=== PATIENT | male | born 1940 | race Caucasian/White ===

== ENCOUNTER 2024-01-10 11:05 | Inpatient (IN) ==
--- NOTE | 2024-01-10 11:46 | Emergency Department Note ---
Impression & Plan Chest pain, Dementia ED Provider Note NAME: YOSI SCALES AGE: 83 SEX: Male INFORMANT: Patient and EMS ED PROVIDER(S): Yosi Vázquez MD CHIEF COMPLAINT: Chest pain PLAN: Disposition: Admitted Outpatient prescription management: none Referral: None MEDICAL DECISION MAKING: Patient presented due to chest pain. Workup was initiated. Twelve-lead ECG reveals atrial fibrillation with PVCs and no acute ischemia. Chest x-ray and blood work ordered. Patient had unremarkable CBC and chemistry panel. He did have mild elevation of cardiac troponin. Chest x-ray was negative. Patient was reassessed and was not having any chest pain. Further management hospital will be necessary. Consultation was made with the [facility] service. Patient was evaluated in the ER admitted for further management. I did attempt to interrogate the patient's pacemaker however it is not compatible with [employer] device and there is no record of the type of device and his personal care information. Care/management discussed with: process excellence manager Level of care consideration(s): After review of the information above and other included data, I feel the patient requires escalation of care to admission Triage Nursing notes: reviewed and agree them. Vital Signs: reviewed and remarkable for no significant abnormalities Additional History obtained from: none Chronic Medical/Social Conditions affecting care: Dementia, A-fib Prior/ Outside/ External records reviewed: [facility] records provided for this visit reviewed. Patient is anticoagulated on apixaban. Differential Diagnosis: Cardiac ischemia, aortic dissection, pulmonary embolism, pneumothorax, pneumonia, pericarditis, myocarditis, esophageal rupture, GERD, cholecystitis, pancreatitis, musculoskeletal, as well as other pathologies. Diagnostics, independently interpreted by me: ECG: Twelve-lead ECG reveals atrial fibrillation with PVCs and left axis deviation at 99 bpm. Nonspecific intraventricular conduction block present. Nonspecific ST. Cardiac Monitoring: Cardiac monitoring ordered by me: The patient was placed on continuous cardiac monitoring and observed. It revealed A-fib with PVCs at 90 bpm Medical decision rules: none Imaging studies: Chest x-ray. Findings: A chest x-ray was performed and revealed no pneumothorax, effusion, infiltrate, pulmonary edema, free air under the diaphragm, or wide mediastinum. Impression: No acute disease. HPI: 83 year old Male arrives for evaluation of chest pain. Patient currently resides at [facility]. Has a history of dementia reportedly. Currently patient does not have any pain. EMS noted the pain started this morning sometime. Patient states that pain has been on and off for the last week or 2. He does note that there was some pain in his back this morning as well. EMS did note that his O2 saturations were in the low 90s. He was placed on supplemental oxygen. Upon arrival to the ER the patient is saturating well on room air. He denies any shortness of breath. Patient is anticoagulated. He does note some swelling in the legs. Denies any nausea, vomiting, fevers, chills, or abdominal pain. History is limited secondary to patient's dementia. PAST MEDICAL HISTORY: See Below, A-fib PAST SURGICAL HISTORY: See Below, pacemaker SOCIAL HISTORY: See Below, retired HOME MEDICATIONS: See Below ALLERGIES: See Below VITALS: See Below PHYSICAL EXAMINATION: GENERAL: Awake, alert, [id number], in no distress HENT: Normocephalic, atraumatic. Oropharynx unremarkable. EYES: Normal conjunctiva. Sclera non-icteric. NECK: Inspection normal. Non-tender. Supple. No nuchal rigidity. FROM. No masses. RESPIRATORY: Clear to auscultation. No wheezes. No rales. Normal respiratory effort. CARDIAC: Normal rate. Normal rhythm. No murmurs. No rubs. Extremities warm and well perfused. Pulses equal. No JVD. GI: Soft, non-distended. No tenderness to palpation. No rebound or guarding. No masses. RECTAL: Deferred. MUSCULOSKELETAL: Atraumatic. Chest examination reveals pacemaker in the left upper chest. The back is symmetrical on inspection without obvious abnormality. There is no CVA tenderness to palpation. No joint edema. LOWER EXTREMITIES: Calves are equal size bilaterally and non-tender. 1-2+ edema. No discoloration. NEURO: Normal sensorium. No sensory or motor deficits noted. SKIN: No rash or jaundice noted. PROCEDURES: none CRITICAL CARE: none OBSERVATION NOTE: none Past Med/Surg History Problem List (Updated 01/10/24 @ 14:06 by Chuck Saravia MD) Chronic a-fib Cardiac pacemaker in situ Hypertension History of CHF (congestive heart failure) Dementia (Acute) Chest pain (Acute) Social History Smoking Status: Unknown if ever smoked Feels Safe at Home: Yes Allergies Allergies Allergy/AdvReac Type Severity Reaction Status Date / Time No Known Allergies Allergy Unverified 01/10/24 13:14 Home Meds Home Medications Medication Instructions Recorded Confirmed apixaban 5 mg tablet 5 mg PO BID 01/10/24 01/10/24 atorvastatin 20 mg tablet 20 mg PO HS 01/10/24 01/10/24 carvedilol 3.125 mg tablet 3.125 mg PO BID 01/10/24 01/10/24 docusate sodium 100 mg capsule 100 mg PO BID 01/10/24 01/10/24 empagliflozin 10 mg tablet 10 mg PO QAM 01/10/24 01/10/24 (Jardiance) furosemide 20 mg tablet 20 mg PO BID 01/10/24 01/10/24 hydroxyzine HCl 10 mg tablet 10 mg PO BID PRN anxiety/aggitation 01/10/24 01/10/24 hydroxyzine HCl 10 mg tablet 10 mg PO HS 01/10/24 01/10/24 sennosides 8.6 mg tablet (senna) 8.6 mg PO UD 01/10/24 01/10/24 sertraline 25 mg tablet 25 mg PO DAILY 01/10/24 01/10/24 tamsulosin 0.4 mg capsule 0.4 mg PO QPM 01/10/24 01/10/24 Results & Data (ED) Vital Signs Vital Signs - 24 hr 01/10/24 10:50 01/10/24 10:50 01/10/24 10:50 Temperature 36.7 C Temperature Source Oral Pulse Rate 93 H Pulse Rate from SpO2 Sensor Pulse Rhythm Regular Pulse Strength Normal Respiratory Rate 20 Respiratory Effort / Characteristics Non-Labored Spontaneous Non-Labored Spontaneous Respiratory Depth Normal Normal Respiratory Pattern Regular Blood Pressure 116/75 Blood Pressure Mean 88 Blood Pressure Position Sitting Pulse Oximetry 93 90 Oxygen Delivery Method Room Air Room Air Oxygen Flow Rate Sepsis Recent Fever Within 48 Hours No Sepsis New/Unexplained Change in Mental Status No Sepsis Action Taken by Nursing No Action Required 01/10/24 11:21 01/10/24 11:51 01/10/24 11:57 Temperature Temperature Source Pulse Rate 96 H 85 101 H Pulse Rate from SpO2 Sensor 91 H 99 H Pulse Rhythm Pulse Strength Respiratory Rate 18 22 Respiratory Effort / Characteristics Respiratory Depth Respiratory Pattern Blood Pressure Blood Pressure Mean Blood Pressure Position Pulse Oximetry 94 93 Oxygen Delivery Method Oxygen Flow Rate Sepsis Recent Fever Within 48 Hours Sepsis New/Unexplained Change in Mental Status Sepsis Action Taken by Nursing 01/10/24 12:01 01/10/24 12:01 01/10/24 12:03 Temperature Temperature Source Pulse Rate 94 H 85 Pulse Rate from SpO2 Sensor 93 H 85 Pulse Rhythm Pulse Strength Respiratory Rate 14 Respiratory Effort / Characteristics Respiratory Depth Respiratory Pattern Blood Pressure 116/77 Blood Pressure Mean 82 Blood Pressure Position Pulse Oximetry 98 Oxygen Delivery Method Nasal Cannula Oxygen Flow Rate 1 Sepsis Recent Fever Within 48 Hours Sepsis New/Unexplained Change in Mental Status Sepsis Action Taken by Nursing 01/10/24 12:09 01/10/24 12:30 01/10/24 12:30 Temperature Temperature Source Pulse Rate 82 84 Pulse Rate from SpO2 Sensor 91 H 84 Pulse Rhythm Pulse Strength Respiratory Rate 14 16 Respiratory Effort / Characteristics Respiratory Depth Respiratory Pattern Blood Pressure 109/77 Blood Pressure Mean 91 Blood Pressure Position Pulse Oximetry 95 94 Oxygen Delivery Method Nasal Cannula Nasal Cannula Oxygen Flow Rate 1 1 Sepsis Recent Fever Within 48 Hours Sepsis New/Unexplained Change in Mental Status Sepsis Action Taken by Nursing Laboratory Data 01/10/24 11:45 01/10/24 12:39 Lab Results 01/10/24 01/10/24 01/10/24 Range/Units 11:45 12:39 12:40 WBC 9.10 (4.8-10.8) K/ul RBC 4.87 (4.70-6.10) M/uL Hgb 14.1 (14.0-18.0) g/dl Hct 45.6 (42.0-52.0) % MCV 93.6 (80.0-100.0) fL MCH 29.0 (25.0-34.0) pg MCHC 30.9 L (32.0-36.0) g/dL RDW Std Deviation 58.0 H (36.4-46.3) fL RDW Coeff of Gt 17.8 H (11.5-14.5) % Plt Count 144 (130-400) K/uL MPV 13.3 H (9.4-12.4) fL Immature Gran % (Auto) 0.3 % Neut % (Auto) 76.9 % Lymph % (Auto) 13.8 % [place] % (Auto) 7.8 % Eos % (Auto) 0.9 % Baso % (Auto) 0.3 % Neut # (Auto) 6.99 H (1.40-6.50) K/uL Lymph # (Auto) 1.26 (1.20-3.40) K/uL [place] # (Auto) 0.71 H (0.11-0.59) K/uL Eos # (Auto) 0.08 (0.00-0.50) K/uL Baso # (Auto) 0.03 (0.00-0.20) K/uL Immature Gran # (Auto) 0.03 (0.01-0.20) K/uL PT Cancelled 15.0 H INR Cancelled 1.4 H Sodium 136 (136-145) mmol/L Potassium TNP 4.7 Chloride 103 (98-107) mmol/L Carbon Dioxide 23 (21-32) mmol/L Anion Gap 10 (3-11) BUN 42 H (6-23) mg/dl Creatinine 1.42 H (0.6-1.4) mg/dl Est Cr Clr Drug Dosing 39.3 ml/min Est GFR ( Amer) 51.8 ml/min Est GFR (Non-Af Amer) 44.7 ml/min BUN/Creatinine Ratio 29.6 H (10-20) Glucose 115 H (70-99(Fasting)) mg/dl Calcium 8.7 (8.6-10.3) mg/dl Magnesium 2.8 H (1.7-2.4) mg/dl Total Bilirubin 1.9 H (0.2-1.0) mg/dl AST TNP 23 ALT 24 (7-52) U/L Alkaline Phosphatase 83 (34-104) U/L Troponin I High Sens 27.8 H (0-20) pg/ml Total Protein 6.6 (6.0-8.3) gm/dl Albumin 3.9 (3.4-5.0) gm/dl Globulin 2.7 (2.5-4.0) gm/dl Albumin/Globulin Ratio 1.4 (0.9-2) TSH 7.876 H (0.300-4.500) uIu/ml Free T4 0.97 (0.61-1.60) ng/dl Imaging Data Radiologist's Impression: Chest X-Ray 01/10/24 11:36 XR chest 1V portable CLINICAL HISTORY: CHEST PAIN TECHNIQUE: Single frontal radiograph of the chest was obtained. Comparison: None available at the time of this dictation. FINDINGS: Pacemaker defibrillator is seen. Cardiomegaly is noted. The aortic arch is calcified. Reticular interstitial opacities are seen. Small right and trace left pleural effusions. IMPRESSION: No acute chest disease. Cardiomegaly is noted. Small bilateral pleural effusions. ACT 112: Negative or not required by law. Electronically signed by: Shay Mccurdy M.D. 01/10/2024 12:14 PM Discharge Plan Visit Data Chief Complaint: Cardiac Assessment ED Provider: Yosi Vázquez Discharge Problem: Chest pain, Dementia Patient Disposition: Admitted As Inpatient Discharge Instructions Interventions: ED Discharge Assessment Last Done: 01/10/24 14:22
--- NOTE | 2024-01-10 12:15 | XRay Report ---
XR chest 1V portable CLINICAL HISTORY: CHEST PAIN TECHNIQUE: Single frontal radiograph of the chest was obtained. Comparison: None available at the time of this dictation. FINDINGS: Pacemaker defibrillator is seen. Cardiomegaly is noted. The aortic arch is calcified. Reticular inter stitial opacities are seen. Small right and trace left pleural effusions. IMPRESSION: No acute chest disease. Cardiomegaly is noted. Small bilateral pleural effusions. ACT 112: Negative or not required by law. Electronically signed by: Shay Mccurdy M.D. 01/10/2024 12:14 PM
[2024-01-10 12:22] LABS: Alanine Aminotransferase 24 U/L (7-52); Albumin Globulin Ratio 1.4 (0.9-2); Albumin Level 3.9 gm/dl (3.4-5.0); Alkaline Phosphatase 83 U/L (34-104); Anion Gap 10 (3-11); BUN Creatinine Ratio 29.6 (10-20); Bilirubin,Total 1.9 mg/dl (0.2-1.0); Blood Urea Nitrogen 42 mg/dl (6-23); Calcium 8.7 mg/dl (8.6-10.3); Carbon Dioxide 23 mmol/L (21-32); Chloride 103 mmol/L (98-107); Creatinine Clr Calc Pharmacy 39.3 ml/min; Est GFR (African American) 51.8 ml/min; Est GFR (Non-African American) 44.7 ml/min; Globulin 2.7 gm/dl (2.5-4.0); Glucose 115 mg/dl (70-99(Fasting)); Magnesium 2.8 mg/dl (1.7-2.4); Sodium 136 mmol/L (136-145); Total Protein 6.6 gm/dl (6.0-8.3)
[2024-01-10 12:23] LABS: Troponin I High Sensitivity 27.8 pg/ml (0-20)
[2024-01-10 12:33] LABS: Thyroid Stimulating Hormone 7.876 uIu/ml (0.300-4.500)
[2024-01-10 12:34] LABS: Basophils # (auto) 0.03 K/uL (0.00-0.20); Basophils % (auto) 0.3 %; Eosinophils # (auto) 0.08 K/uL (0.00-0.50); Eosinophils % (auto) 0.9 %; Hematocrit (blood only) 45.6 % (42.0-52.0); Hemoglobin 14.1 g/dl (14.0-18.0); Immature Granulocytes # (auto) 0.03 K/uL (0.01-0.20); Immature Granulocytes % (auto) 0.3 %; Lymphocytes # (auto) 1.26 K/uL (1.20-3.40); Lymphocytes % (auto) 13.8 %; Mean Corpuscular Hgb Conc 30.9 g/dL (32.0-36.0); Mean Corpuscular Volume 93.6 fL (80.0-100.0); Mean Platelet Volume 13.3 fL (9.4-12.4); Monocytes # (auto) 0.71 K/uL (0.11-0.59); Monocytes % (auto) 7.8 %; Neutrophils # (auto) 6.99 K/uL (1.40-6.50); Neutrophils % (auto) 76.9 %; Platelet Count 144 K/uL (130-400); RDW Coefficient of Variation 17.8 % (11.5-14.5); Red Blood Count 4.87 M/uL (4.70-6.10)
[2024-01-10 13:12] LABS: T4 Free Thyroxine 0.97 ng/dl (0.61-1.60)
[2024-01-10 13:13] LABS: Potassium 4.7 mmol/L (3.5-5.1)
[2024-01-10 13:24] LABS: INR 1.4 (0.9-1.1)
--- NOTE | 2024-01-10 13:47 | History & Physical Report ---
Date of Service January 10, 2024 Assessment & Plan (1) Chest pain: (2) Chronic a-fib: (3) Cardiac pacemaker in situ: (4) History of CHF (congestive heart failure): (5) Dementia: Plan 83 year old male from [facility] with history of dementia, HTN, A fib, CHF, BPH, Urinary incontinence, HLD, depression who was sent to the ED for chest pain. Chest pain- unreliable historian. Trop mildly elevated. EKG with rate controlled A fib, no prior EKGs to compare. Will trend trop, check echo, monitor in tele, interrogate pacemaker. Given unreliable history and inability to interrogate pacemaker, will consult cardio. Chronic A fib- Rate controlled on coreg, anticoagulated on eliquis History of CHF- does not look overtly volume overloaded. CXR noted. Saturating well in room air. Echo pending. BNP pending. Continue OPERATIONS AND MAINTENANCE SPECIALIST jardiance, lasix. Depression/Dementia- continue zoloft, delirium precautions DVT ppx- eliquis Dispo- Observation Time spent- approx 60 mins Unable to reach caregiver Norah Lewis [phone] over the phone History of Present Illness Chief Complaint: chest pain Primary Care Provider: Cayetano Costa, 83 year old male from [facility] with history of dementia, HTN, CHF, BPH, Urinary incontinence, HLD, depression who was sent to the ED for chest pain. Patient is demented and not a reliable historian. History obtained from the patient, chart review and discussion with ED physician. Tried calling his caregiver x2 but I was unable to reach. He is awake, alert oriented to self and able to converse. States he had episode chest pain and back pain which is now resolved, central, sharp. No fever, chills, SOB, N/V. Pain has been intermittent for the past week or two. PMH- HTN, A fib, HLD, BPH, Dementia, Depression, CHF PSH- not pertinent Allergies- NKA, NKFA Allergies Allergy/AdvReac Type Severity Reaction Status Date / Time No Known Allergies Allergy Unverified 01/10/24 13:14 Home Medications Medication Instructions Recorded Confirmed Type apixaban 5 mg tablet 5 mg PO BID 01/10/24 01/10/24 History atorvastatin 20 mg tablet 20 mg PO HS 01/10/24 01/10/24 History carvedilol 3.125 mg tablet 3.125 mg PO BID 01/10/24 01/10/24 History docusate sodium 100 mg capsule 100 mg PO BID 01/10/24 01/10/24 History empagliflozin 10 mg tablet 10 mg PO QAM 01/10/24 01/10/24 History (Jardiance) furosemide 20 mg tablet 20 mg PO BID 01/10/24 01/10/24 History hydroxyzine HCl 10 mg tablet 10 mg PO BID PRN anxiety/aggitation 01/10/24 01/10/24 History hydroxyzine HCl 10 mg tablet 10 mg PO HS 01/10/24 01/10/24 History sennosides 8.6 mg tablet (senna) 8.6 mg PO UD 01/10/24 01/10/24 History sertraline 25 mg tablet 25 mg PO DAILY 01/10/24 01/10/24 History tamsulosin 0.4 mg capsule 0.4 mg PO QPM 01/10/24 01/10/24 History Past Med/Surg History Problem List (Updated 01/10/24 @ 14:06 by Chuck Saravia MD) Chronic a-fib Cardiac pacemaker in situ Hypertension History of CHF (congestive heart failure) Dementia (Acute) Chest pain (Acute) Social History Smoking Status: Unknown if ever smoked Feels Safe at Home: Yes Review of Systems Review of Systems: Unobtainable due to cognitive status Physical Exam Physical Exam: General: Lying comfortably in bed, not in distress, on room air HEENT: OTILIO, MMM Chest: Clear breath sounds bilaterally, no wheezes or crackles CVS: Regular rate and rhythm, normal heart sounds, no murmur Abdomen: Soft, non tender, not distended, normal bowel sounds Neuro: Awake, alert, confused, demented Extremities: Trace LE edema Psych: Calm Results & Data Results & Data Vital Signs (Past 12 Hours) Vital Signs Temp Pulse Resp BP Pulse Ox O2 Del Method O2 Flow Rate 01/10/24 12:30 84 16 94 Nasal Cannula 1 01/10/24 12:30 109/77 01/10/24 12:09 82 14 95 Nasal Cannula 1 01/10/24 12:03 85 14 98 Nasal Cannula 1 01/10/24 12:01 94 H 08/03/24 12:01 116/77 01/10/24 11:57 101 H 22 93 01/10/24 11:51 85 18 94 01/10/24 11:21 96 H 01/10/24 10:50 90 Room Air 01/10/24 10:50 36.7 C 93 H 20 116/75 93 Room Air Laboratory Results Short CBC 01/10/24 Range/Units 11:45 WBC 9.10 (4.8-10.8) K/ul Hgb 14.1 (14.0-18.0) g/dl Hct 45.6 (42.0-52.0) % Plt Count 144 (130-400) K/uL BMP 01/10/24 01/10/24 11:45 12:39 Sodium 136 Potassium TNP 4.7 Chloride 103 Carbon Dioxide 23 BUN 42 H Creatinine 1.42 H Glucose 115 H Calcium 8.7 Liver Function 01/10/24 01/10/24 Range/Units 11:45 12:39 Total Bilirubin 1.9 H (0.2-1.0) mg/dl AST TNP 23 ALT 24 (7-52) U/L Alkaline Phosphatase 83 (34-104) U/L Albumin 3.9 (3.4-5.0) gm/dl Diagnostic Findings Chest X-Ray 01/10/24 11:36 XR chest 1V portable CLINICAL HISTORY: CHEST PAIN TECHNIQUE: Single frontal radiograph of the chest was obtained. Comparison: None available at the time of this dictation. FINDINGS: Pacemaker defibrillator is seen. Cardiomegaly is noted. The aortic arch is calcified. Reticular interstitial opacities are seen. Small right and trace left pleural effusions. IMPRESSION: No acute chest disease. Cardiomegaly is noted. Small bilateral pleural effusions. ACT 112: Negative or not required by law. Electronically signed by: Shay Mccurdy M.D. 01/10/2024 12:14 PM
[2024-01-10] MEDS ORDERED: ALUMINUM/MAGNESIUM SUSP 30 ML UDC PO PRN (14:20)
[2024-01-10] MEDS ORDERED: ONDANSETRON INJ 2 MG/ML 2 ML VIAL IV PRN (14:20)
[2024-01-10] MEDS ORDERED: NITROGLYCERIN SL 0.4 MG/TAB TAB SL PRN (14:20)
[2024-01-10] MEDS ORDERED: POLYETHYLENE (MIRALAX) 17 GM PACK PO PRN (14:20)
[2024-01-10] MEDS ORDERED: MAGNESIUM HYDROXIDE SUSP 30 ML UDC PO PRN (14:20)
[2024-01-10] MEDS ORDERED: hydrOXYzine HCl 10 MG TAB PO PRN (14:20)
[2024-01-10] MEDS ORDERED: HEPARIN SOD 5,000 UNIT/0.5 ML VIAL SQ SCH (14:20)
[2024-01-10] MEDS: carvediloL 3.125 MG TAB PO SCH (18:48)
[2024-01-10] MEDS: FUROSEMIDE 20 MG TAB PO SCH (18:49)
[2024-01-10] MEDS: ACETAMINOPHEN 325 MG TAB PO PRN (21:48)
[2024-01-10] MEDS: SENNA 8.6 MG TAB PO SCH (21:49)
[2024-01-10] MEDS: hydrOXYzine HCl 10 MG TAB PO SCH (21:49)
[2024-01-10] MEDS: TAMSULOSIN HCL 0.4 MG CAP PO SCH (21:49)
[2024-01-10] MEDS: APIXABAN 5 MG TABLET PO SCH (21:49)
[2024-01-10] MEDS: ATORVASTATIN 20 MG TAB PO SCH (21:50)
[2024-01-10] MEDS: DOCUSATE SODIUM 100 MG CAP PO SCH (21:50)
[2024-01-10 23:44] LABS: Appearance Urine Clear (Clear); Bacteria Urine Automated None Seen (None Seen); Bilirubin Urine Negative (Negative); Blood Urine Negative (Negative); Color Urine Yellow; Epithelial Cell Urine Auto 0-2 /hpf (0-2); Glucose Urine UA 3+ (Negative); Ketones Urine Negative (Negative); Leukocyte Esterase Urine Negative (Negative); Nitrite Urine Negative (Negative); Protein Urine Trace (Negative); Specific Gravity Urine 1.022 (1.000-1.030); Urobilinogen Urine Negative (Negative); WBC Urine Automated 0-5 /hpf (0-5); pH Urine 5.5 (4.5-7.5)
[2024-01-11] MEDS: OLANZapine 10 MG/2.1 ML SDV IM STA ×2 (00:36→05:40)
[2024-01-11 04:12] LABS: Basophils # (auto) 0.03 K/uL (0.00-0.20); Basophils % (auto) 0.3 %; Eosinophils # (auto) 0.06 K/uL (0.00-0.50); Eosinophils % (auto) 0.7 %; Hematocrit (blood only) 45.2 % (42.0-52.0); Immature Granulocytes # (auto) 0.03 K/uL (0.01-0.20); Immature Granulocytes % (auto) 0.3 %; Lymphocytes # (auto) 1.21 K/uL (1.20-3.40); Lymphocytes % (auto) 13.5 %; Mean Corpuscular Hemoglobin 29.3 pg (25.0-34.0); Mean Corpuscular Volume 94.6 fL (80.0-100.0); Monocytes # (auto) 0.64 K/uL (0.11-0.59); Monocytes % (auto) 7.2 %; Neutrophils # (auto) 6.97 K/uL (1.40-6.50); Nucleated RBC # (auto) 0.02 K/uL (0.00-0.12); Nucleated RBC % (auto) 0.2 %; Platelet Count 150 K/uL (130-400); RDW Coefficient of Variation 17.5 % (11.5-14.5); Red Blood Count 4.78 M/uL (4.70-6.10); White Blood Count 8.94 K/ul (4.8-10.8)
[2024-01-11] MEDS: HYDROmorphone INJ 0.5 MG/0.5 ML SYR IV STA (04:14)
[2024-01-11 04:26] LABS: BUN Creatinine Ratio 31.7 (10-20); Calcium 8.6 mg/dl (8.6-10.3); Chol HDL Ratio 2.8 (0-5); Creatinine Clr Calc Pharmacy 40.1 ml/min; Est GFR (African American) 53.2 ml/min; Est GFR (Non-African American) 45.9 ml/min; Potassium 4.4 mmol/L (3.5-5.1)
--- NOTE | 2024-01-11 07:08 | Electrocardiogram Report ---
Test Reason : Blood Pressure : / mmHG Vent. Rate : 099 BPM Atrial Rate : 000 BPM P-R Int : 000 ms QRS Dur : 130 ms QT Int : 382 ms P-R-T Axes : 000 -67 092 degrees QTc Int : 490 ms Atrial fibrillation with premature ventricular or aberrantly conducted complexes Left axis deviation Non-specific intra-ventricular conduction block Minimal voltage criteria for LVH, may be normal variant Nonspecific T wave abnormality Abnormal ECG No previous ECGs available Confirmed by Gato Cid ([id number]) on 01/11/2024 7:07:54 AM Referred By: Confirmed By:Rahul Cid
--- NOTE | 2024-01-11 09:19 | Hospitalist Progress Note ---
Date of Service January 11, 2024 Assessment & Plan (1) Chest pain: (2) Chronic a-fib: (3) Cardiac pacemaker in situ: (4) History of CHF (congestive heart failure): (5) Dementia: Plan 83 year old male from [facility] with history of dementia, HTN, A fib, CHF, BPH, Urinary incontinence, HLD, depression who was sent to the ED for chest pain. Chest pain, ACS ruled out Persistent A.fib Acute on chronic systolic Heart Failure Patient was brought into the hospital due to complaints of chest pain EKG on admission shows atrial fibrillation with ventricular rate of 114 High sensitive troponin elevated to 27 on admission; flat trend Pacemaker interrogation showed 2 episodes of VT (on June 20, 2023 for 12s and April 2023) Chest x-ray on admission showed mild pulmonary vascular congestion with a small bilateral pleural effusion Echocardiogram shows moderately dilated left ventricular, severe global hypokinesis of left ventricle, inferior and posterior wall appear akinetic. EF of 20 to 25%. Aortic valve sclerosis moderate. Continue on aspirin, Lipitor, Coreg and Jardiance Continue on Lasix, strict input and output monitoring. Bladder scan to monitor for retention Continue to monitor on telemetry Continue on Eliquis Discussed with patient's daughters at bedside. They report that patient has been hospitalized multiple times in the last few weeks with chest pain and agitation in different hospitals. They acknowledge that patient has end stage heart failure and advancing dementia which has led to significant therapeutic challenges. They had planned for him to be evaluated for hospice this weekend; however, he ended up being admitted here. They want him to be as comfortable as possible; do not want any aggressive interventions like chest compression or ventilator. They want him to be discharged on hospice care in next few days. Case management on board. Transfer to medical floor. Depression/Dementia- continue zoloft, delirium precautions DVT ppx- eliquis Dispo- Observation Time spent evaluating patient, direct bedside care, chart review, placing orders, interpretation of diagnostic studies, discussion with consultants, patient, and family members, as well as other required patient management activities is 50 minutes Please note the above document was generated using voice recognition software. It may contain grammatical, syntax or spelling errors. Any formal questions or concerns about the content, text or information contained within the body of this dictation should be directly addressed to the provider for clarification Admission and Anticipated Discharge Date Admission Date: January 10, 2024 Subjective Patient seen and examined at bedside Patient extremely restless overnight; required IM Zyprexa. Telemetry shows atrial fibrillation With RVR Review of Systems Review of Systems: Unobtainable due to cognitive status Physical Exam Physical Exam: General: Lying comfortably in bed, not in distress, on room air HEENT: OTILIO, MMM Chest: Clear breath sounds bilaterally, no wheezes or crackles CVS: Regular rate and rhythm, normal heart sounds, no murmur Abdomen: Soft, non tender, not distended, normal bowel sounds Neuro: Awake, alert, confused, demented Extremities: Trace LE edema Psych: Calm Results & Data Results & Data Vital Signs (Past 12 Hours) Vital Signs Temp Pulse Pulse Resp BP Pulse Ox O2 Del Method 01/11/24 07:49 36.4 C L 125 H 16 122/82 90 Room Air 01/11/24 03:34 36.5 C 89 18 110/64 92 Room Air 01/11/24 00:21 95 H 18 111/76 95 Room Air 01/10/24 21:50 Room Air 01/10/24 21:50 102 H
--- NOTE | 2024-01-11 09:46 | Electrocardiogram Report ---
Test Reason : Blood Pressure : / mmHG Vent. Rate : 114 BPM Atrial Rate : 084 BPM P-R Int : 000 ms QRS Dur : 126 ms QT Int : 356 ms P-R-T Axes : 000 -74 096 degrees QTc Int : 490 ms Atrial fibrillation Left axis deviation Non-specific intra-ventricular conduction block Abnormal ECG Confirmed by Gato Cid ([id number]) on 01/11/2024 9:46:26 AM Referred By: Kaylene [facility] Confirmed By:Rahul Cid
[2024-01-11] MEDS: ASPIRIN 81 MG ECTAB PO SCH (10:41)
[2024-01-11] MEDS: EMPAGLIFLOZIN 10 MG TAB PO SCH (10:41)
[2024-01-11] MEDS: SERTRALINE HCL 50 MG TABLET PO SCH (10:41)
[2024-01-11] MEDS: HYDROmorphone INJ 0.5 MG/0.5 ML SYR IV PRN (10:53)
[2024-01-11] MEDS: carvediloL 6.25 MG TAB PO ONE (12:29)
[2024-01-11] MEDS: OLANZapine 10 MG/2.1 ML SDV IM PRN (13:49)
[2024-01-11] MEDS: HYDROmorphone INJ 1 MG/ML SYRINGE IV PRN (16:43)
[2024-01-11] MEDS ORDERED: ONDANSETRON 4 MG OD TAB SL PRN (17:18)
[2024-01-11] MEDS ORDERED: LORazepam 0.5 MG in SYRINGE 0.25 ML IV PRN (17:18)
[2024-01-11] MEDS ORDERED: ONDANSETRON INJ 2 MG/ML 2 ML VIAL IV PRN (17:18)
[2024-01-11] MEDS: carvediloL 6.25 MG TAB PO SCH (18:14)
[2024-01-12] MEDS: LORazepam 0.5 MG TAB PO PRN (03:31)
[2024-01-12] MEDS: HYDROmorphone INJ 0.5 MG/0.5 ML SYR IV PRN (03:34)
[2024-01-12] MEDS: LORazepam 0.5 MG in SYRINGE 0.25 ML IV PRN (03:47)
--- NOTE | 2024-01-12 09:47 | Hospitalist Progress Note ---
Date of Service January 12, 2024 Assessment & Plan (1) Chest pain: (2) Chronic a-fib: (3) Cardiac pacemaker in situ: (4) History of CHF (congestive heart failure): (5) Dementia: Plan 83 year old male from [facility] with history of dementia, HTN, A fib, CHF, BPH, Urinary incontinence, HLD, depression who was sent to the ED for chest pain. Chest pain, ACS ruled out Persistent A.fib Acute on chronic systolic Heart Failure Comfort care Patient was brought into the hospital due to complaints of chest pain EKG on admission shows atrial fibrillation with ventricular rate of 114 High sensitive troponin elevated to 27 on admission; flat trend Pacemaker interrogation showed 2 episodes of VT (on June 20, 2023 for 12s and April 2023) Chest x-ray on admission showed mild pulmonary vascular congestion with a small bilateral pleural effusion Echocardiogram shows moderately dilated left ventricular, severe global hypokinesis of left ventricle, inferior and posterior wall appear akinetic. EF of 20 to 25%. Aortic valve sclerosis moderate. Discussed with patient's daughters at bedside. They report that patient has been hospitalized multiple times in the last few weeks with chest pain and agitation in different hospitals. They acknowledge that patient has end stage heart failure and advancing dementia which has led to significant therapeutic challenges. They had planned for him to be evaluated for hospice this weekend; however, he ended up being admitted here. They want him to be as comfortable as possible; do not want any aggressive interventions like chest compression or ventilator. Given rapid decompensation of the patient; general inpatient hospice evaluation requested. Discussed with case management Continue comfort measures with Ativan, Dilaudid as needed. No further lab work necessary. Please note the above document was generated using voice recognition software. It may contain grammatical, syntax or spelling errors. Any formal questions or concerns about the content, text or information contained within the body of this dictation should be directly addressed to the provider for clarification Admission and Anticipated Discharge Date Admission Date: January 10, 2024 Subjective Overnight, patient had restless episodes requiring IV Dilaudid and Zyprexa. He appears to be confused and restless in the morning as well Review of Systems Review of Systems: Unobtainable due to cognitive status Physical Exam Physical Exam: General:Appears restless; not in any distress HEENT: OTILIO, MMM Chest: Clear breath sounds bilaterally, no wheezes or crackles CVS: Irregular rate and rhythm, normal heart sounds, no murmur Abdomen: Soft, non tender, not distended, normal bowel sounds Neuro: restless, needs frequent redirection Extremities: Trace LE edema Psych: Calm Results & Data Results & Data Vital Signs (Past 12 Hours) Vital Signs O2 Del Method O2 Flow Rate 01/12/24 07:54 Room Air 01/11/24 23:00 Nasal Cannula 4
[2024-01-12] MEDS: LORazepam 1 MG in SYRINGE 0.5 ML IV PRN (12:27)
[2024-01-12] MEDS: ATROPINE SULFATE 1% OP SOLN 5 ML BTL SL PRN (12:27)
--- NOTE | 2024-01-12 16:24 | Discharge Summary ---
Date of Service January 12, 2024 Admission HPI Per Admitting Provider 83 year old male from [facility] with history of dementia, HTN, CHF, BPH, Urinary incontinence, HLD, depression who was sent to the ED for chest pain. Patient is demented and not a reliable historian. History obtained from the patient, chart review and discussion with ED physician. Tried calling his caregiver x2 but I was unable to reach. He is awake, alert oriented to self and able to converse. States he had episode chest pain and back pain which is now resolved, central, sharp. No fever, chills, SOB, N/V. Pain has been intermittent for the past week or two. PMH- HTN, A fib, HLD, BPH, Dementia, Depression, CHF PSH- not pertinent Allergies- NKA, NKFA Admission Exam Per Admitting Provider General: Lying comfortably in bed, not in distress, on room air HEENT: OTILIO, MMM Chest: Clear breath sounds bilaterally, no wheezes or crackles CVS: Regular rate and rhythm, normal heart sounds, no murmur Abdomen: Soft, non tender, not distended, normal bowel sounds Neuro: Awake, alert, confused, demented Extremities: Trace LE edema Psych: Calm Principal Diagnosis End stage CHF Discharge Exam General:Appears restless; not in any distress HEENT: OTILIO, MMM Chest: Clear breath sounds bilaterally, no wheezes or crackles CVS: Irregular rate and rhythm, normal heart sounds, no murmur Abdomen: Soft, non tender, not distended, normal bowel sounds Neuro: restless, needs frequent redirection Extremities: Trace LE edema Psych: Calm Discharge Data Allergies Allergy/AdvReac Type Severity Reaction Status Date / Time No Known Allergies Allergy Unverified 01/10/24 13:14 Consultations 01/10/24 13:15 ED Decision to Admit Stat Hospital Course (1) Chest pain: (2) Chronic a-fib: (3) Cardiac pacemaker in situ: (4) History of CHF (congestive heart failure): (5) Dementia: Plan 83 year old male from [facility] with history of dementia, HTN, A fib, CHF, BPH, Urinary incontinence, HLD, depression who was sent to the ED for chest pain. Chest pain, ACS ruled out Persistent A.fib Acute on chronic systolic Heart Failure Comfort care Patient was brought into the hospital due to complaints of chest pain EKG on admission shows atrial fibrillation with ventricular rate of 114 High sensitive troponin elevated to 27 on admission; flat trend Pacemaker interrogation showed 2 episodes of VT (on June 20, 2023 for 12s and April 2023) Chest x-ray on admission showed mild pulmonary vascular congestion with a small bilateral pleural effusion Echocardiogram shows moderately dilated left ventricular, severe global hypokinesis of left ventricle, inferior and posterior wall appear akinetic. EF of 20 to 25%. Aortic valve sclerosis moderate. Discussed with patient's daughters at bedside. They report that patient has been hospitalized multiple times in the last few weeks with chest pain and agitation in different hospitals. They acknowledge that patient has end stage heart failure and advancing dementia which has led to significant therapeutic challenges. They had planned for him to be evaluated for hospice this weekend; however, he ended up being admitted here. They want him to be as comfortable as possible; do not want any aggressive interventions like chest compression or ventilator. Given rapid decompensation of the patient; general inpatient hospice evaluation requested. Patient qualified for [facility]. patient was admitted to [facility] at the same facility. Please note the above document was generated using voice recognition software. It may contain grammatical, syntax or spelling errors. Any formal questions or concerns about the content, text or information contained within the body of this dictation should be directly addressed to the provider for clarification Total Time Total Time Spent Total Time Spent (In Minutes): 35 Total Time Includes: Examination of the Patient, Discharge Planning, Medication Reconciliation, Communication With Other Providers and Other Discharge Plan Discharge Items Patient Disposition: Hospice - Medical Facility Reason For Visit: CHEST PAIN Discharge Diagnosis: End stage CHF Activity: Resume your previous activity Non-emergency contact: Primary Care Provider Call non-emergency contact if: you have any medication questions and your symptoms worsen Follow-up/Referrals: Cayetano Costa DO [Primary Care Provider] - Diet: Regular Addtl Attending Provider Instructions: Patient is being discharged to Inpatient Hospice at the same facility. Pending Studies at Discharge: No Stand-Alone Forms: [facility] Skilled Items Patient informed of condition?: Yes DNR: Yes Discharge Level of Care: Other Communicable Disease: No Discharge Prognosis: Deteriorating Lines: Peripheral IV Urinary Catheter: No Medications and DC Order Prescriptions: Continued sennosides [senna] 8.6 mg tablet 8.6 mg PO UD Rx Instructions: 1 or 2 tabs po qhs atorvastatin 20 mg tablet 20 mg PO HS carvedilol 3.125 mg tablet 3.125 mg PO BID tamsulosin 0.4 mg capsule 0.4 mg PO QPM docusate sodium 100 mg capsule 100 mg PO BID sertraline 25 mg tablet 25 mg PO DAILY furosemide 20 mg tablet 20 mg PO BID hydroxyzine HCl 10 mg tablet 10 mg PO HS hydroxyzine HCl 10 mg tablet 10 mg PO BID PRN (Reason: anxiety/aggitation) apixaban 5 mg Tablet 5 mg PO BID Jardiance 10 mg tablet 10 mg PO QAM Discharge Orders: Discharge Order (Routine); Ordered 01/12/24 Ordered By: Fitz Ricks Admission Data Admit Date/Time: 01/12/24 14:28 Attending Provider: Chuck Saravia Admit Provider: Fitz Ricks Primary Care Provider: Cayetano Costa Other Providers: Chuck Saravia; [facility]
== END 2024-01-12 16:00 | disposition hospice, inpatient (51) | DRG 951 ==
LOC: ED 11:05 → EDINP 11:05 → SUATTDRO 13:09 → 2W 14:22 → 3N 01-11 22:20

== ENCOUNTER 2024-01-12 16:02 | Inpatient (IN) ==
[2024-01-12] MEDS ORDERED: ONDANSETRON 4 MG OD TAB SL PRN (16:12)
[2024-01-12] MEDS ORDERED: ONDANSETRON INJ 2 MG/ML 2 ML VIAL IV PRN (16:12)
--- NOTE | 2024-01-12 16:22 | History & Physical Report ---
Date of Service January 12, 2024 Assessment & Plan (1) Hospice care patient: Plan 83 year old male from [facility] with history of dementia, HTN, A fib, CHF, BPH, Urinary incontinence, HLD, depression who was sent to the ED for chest pain. Patient was brought into the hospital due to complaints of chest pain Echo revealed EF of 20-25 percent. Discussed with patient's daughters . They report that patient has been hospitalized multiple times in the last few weeks with chest pain and agitation in different hospitals. They acknowledge that patient has end stage heart failure and advancing dementia which has led to significant therapeutic challenges. They want him to be as comfortable as possible; do not want any aggressive interventions like chest compression or ventilator. Given rapid decompensation of the patient; patient was admitted to General inpatient hospice care. Comfort care measures Ativan 1mg q6h and prn Dilaudid 0.5 q30m prn no labs will follow hospice recommendations Please note the above document was generated using voice recognition software. It may contain grammatical, syntax or spelling errors. Any formal questions or concerns about the content, text or information contained within the body of this dictation should be directly addressed to the provider for clarification Admission and Anticipated Discharge Date Admission Date: January 12, 2024 History of Present Illness Chief Complaint: General inpatient Hospice Care Primary Care Provider: Cayetano Costa DO 83 year old male from [facility] with history of dementia, HTN, A fib, CHF, BPH, Urinary incontinence, HLD, depression who was sent to the ED for chest pain. Patient was brought into the hospital due to complaints of chest pain EKG on admission shows atrial fibrillation with ventricular rate of 114 High sensitive troponin elevated to 27 on admission; flat trend Pacemaker interrogation showed 2 episodes of VT (on June 20, 2023 for 12s and April 2023) Chest x-ray on admission showed mild pulmonary vascular congestion with a small bilateral pleural effusion Echocardiogram shows moderately dilated left ventricular, severe global hypokinesis of left ventricle, inferior and posterior wall appear akinetic. EF of 20 to 25%. Aortic valve sclerosis moderate. Discussed with patient's daughters . They report that patient has been hospitalized multiple times in the last few weeks with chest pain and agitation in different hospitals. They acknowledge that patient has end stage heart failure and advancing dementia which has led to significant therapeutic challenges. They want him to be as comfortable as possible; do not want any aggressive interventions like chest compression or ventilator. Given rapid decompensation of the patient; patient was admitted to General inpatient hospice care. Allergies Allergy/AdvReac Type Severity Reaction Status Date / Time No Known Allergies Allergy Unverified 01/10/24 13:14 Home Medications Medication Instructions Recorded Confirmed Type apixaban 5 mg tablet 5 mg PO BID 01/10/24 01/10/24 History atorvastatin 20 mg tablet 20 mg PO HS 01/10/24 01/10/24 History carvedilol 3.125 mg tablet 3.125 mg PO BID 01/10/24 01/10/24 History docusate sodium 100 mg capsule 100 mg PO BID 01/10/24 01/10/24 History empagliflozin 10 mg tablet 10 mg PO QAM 01/10/24 01/10/24 History (Jardiance) furosemide 20 mg tablet 20 mg PO BID 01/10/24 01/10/24 History hydroxyzine HCl 10 mg tablet 10 mg PO BID PRN anxiety/aggitation 01/10/24 01/10/24 History hydroxyzine HCl 10 mg tablet 10 mg PO HS 01/10/24 01/10/24 History sennosides 8.6 mg tablet (senna) 8.6 mg PO UD 01/10/24 01/10/24 History sertraline 25 mg tablet 25 mg PO DAILY 01/10/24 01/10/24 History tamsulosin 0.4 mg capsule 0.4 mg PO QPM 01/10/24 01/10/24 History Past Med/Surg History Problem List (Updated 01/12/24 @ 16:18 by Fitz Ricks MD) Hospice care patient Chronic a-fib Cardiac pacemaker in situ Hypertension History of CHF (congestive heart failure) Dementia (Acute) Chest pain (Acute) Social History Smoking Status: Never smoker Hx Alcohol Use: No Hx Substance Use: No Communication Ability: Impaired Beliefs That Will Affect Care: Jew Feels Safe at Home: Yes Assistive Devices: None Review of Systems Review of Systems: Unobtainable due to mental health condition Physical Exam Physical Exam: General: comfortable; not in any distress CVS- irregular, no murmur Chest- rhochi heard Abdomen- soft,non-tender Neuro- appears comfortable; sleeping
[2024-01-12] MEDS: HYDROmorphone INJ 0.5 MG/0.5 ML SYR IV PRN (16:37)
[2024-01-12] MEDS: LORazepam 0.5 MG in SYRINGE 0.25 ML IV SCH (16:59)
[2024-01-12] MEDS: LORazepam 1 MG in SYRINGE 0.5 ML IV PRN (21:25)
[2024-01-13] MEDS ORDERED: ATROPINE SULFATE 1% OP SOLN 5 ML BTL OP PRN (02:02)
--- NOTE | 2024-01-13 04:00 | Death Pronouncement Note ---
Date of Service January 13, 2024 Pronouncement Note Admission Date January 12, 2024 Date and Time of Date of : 01/13/24 Time of : 03:35 Additional Data Confirmation of : no pulse, no respirations, no heart sounds and pupils fixed and dilated Family: at bedside Attending physician: Frank Griffiths MD
--- NOTE | 2024-01-13 07:52 | Discharge Summary ---
Date of Service January 13, 2024 Admission HPI Per Admitting Provider 83 year old male from [facility] with history of dementia, HTN, A fib, CHF, BPH, Urinary incontinence, HLD, depression who was sent to the ED for chest pain. Patient was brought into the hospital due to complaints of chest pain EKG on admission shows atrial fibrillation with ventricular rate of 114 High sensitive troponin elevated to 27 on admission; flat trend Pacemaker interrogation showed 2 episodes of VT (on June 20, 2023 for 12s and April 2023) Chest x-ray on admission showed mild pulmonary vascular congestion with a small bilateral pleural effusion Echocardiogram shows moderately dilated left ventricular, severe global hypokinesis of left ventricle, inferior and posterior wall appear akinetic. EF of 20 to 25%. Aortic valve sclerosis moderate. Discussed with patient's daughters . They report that patient has been hospitalized multiple times in the last few weeks with chest pain and agitation in different hospitals. They acknowledge that patient has end stage heart failure and advancing dementia which has led to significant therapeutic challenges. They want him to be as comfortable as possible; do not want any aggressive interventions like chest compression or ventilator. Given rapid decompensation of the patient; patient was admitted to General inpatient hospice care. Admission Exam Per Admitting Provider General: comfortable; not in any distress CVS- irregular, no murmur Chest- rhochi heard Abdomen- soft,non-tender Neuro- appears comfortable; sleeping Principal Diagnosis End stage CHF Discharge Exam Patient on 01/13/2024 at 3: 35 am. Discharge Data Allergies Allergy/AdvReac Type Severity Reaction Status Date / Time No Known Allergies Allergy Unverified 01/10/24 13:14 Hospital Course (1) Hospice care patient: Plan 83 year old male from [facility] with history of dementia, HTN, A fib, CHF, BPH, Urinary incontinence, HLD, depression who was sent to the ED for chest pain. Patient was brought into the hospital due to complaints of chest pain Echo revealed EF of 20-25 percent. Discussed with patient's daughters . They report that patient has been hospitalized multiple times in the last few weeks with chest pain and agitation in different hospitals. They acknowledge that patient has end stage heart failure and advancing dementia which has led to significant therapeutic challenges. They want him to be as comfortable as possible; do not want any aggressive interventions like chest compression or ventilator. Given rapid decompensation of the patient; patient was admitted to General inpatient hospice care. Patient on 01/13/2024 at 3: 35 am. Please note the above document was generated using voice recognition software. It may contain grammatical, syntax or spelling errors. Any formal questions or concerns about the content, text or information contained within the body of this dictation should be directly addressed to the provider for clarification Total Time Total Time Spent Total Time Spent (In Minutes): 5 Total Time Includes: Examination of the Patient, Discharge Planning, Medication Reconciliation, Communication With Other Providers and Other Discharge Plan Discharge Items Patient Disposition: Other Date/Time: 01/13/24 03:40
== END 2024-01-13 06:02 | disposition expired | DRG 951 ==
LOC: 3N 16:02